=== PATIENT | female | born 1980 | race Caucasian/White ===

== ENCOUNTER → 2018-07-05 | Outpatient (CLI) | payer OTHER ==
--- NOTE | 2018-07-05 14:55 | Diagnostic Imaging Report ---
EXAMINATION: MRI of the brain without contrast. HISTORY: Persistent severe headache for the last 24 hours COMPARISON: None. TECHNIQUE: Sagittal T2; axial DWI, T2, FLAIR, T1-IR, T2 gradient echo; coronal FLAIR. IMAGE QUALITY: Adequate. FINDINGS: Parenchyma: 1. A few scattered supratentorial white matter T2 and FLAIR hyperintense foci (less than 5) which may be migraine related or secondary to minimal chronic microvascular ischemic. 2. No mass, hemorrhage, acute or chronic infarcts. Skull: Unremarkable. Vessels: Expected flow voids present in the major arteries and dural sinuses. Extra-axial spaces: No abnormal signal intensity or mass effect. Brain volume: Within normal limits for age. Ventricles: No hydrocephalus or displacement. Foramen magnum: Unremarkable. Sella: Unremarkable. Paranasal / mastoid sinuses: No significant inflammatory disease. IMPRESSION: No acute intracranial abnormalities particularly no evidence of hemorrhage. The findings were discussed with the attending physician Dr. Malloy at the time of this dictation. Signed by: Dr. Kalie Valiente M.D. on 07/05/2018 2:51 PM
== END ==
LOC: MRI 13:38
PROVIDERS: ATTEND Family Medicine
DX: G43.909 Migraine, unspecified, not intractable, without status migrainosus (principal); G44.209 Tension-type headache, unspecified, not intractable
CPT/HCPCS: 70551

== ENCOUNTER → 2019-11-15 | Outpatient (CLI) | payer OTHER ==
--- NOTE | 2019-11-15 13:46 | Diagnostic Imaging Report ---
Thyroid ultrasound. History: Thyroid nodule. Comparison: None available. Discussion: Transverse and longitudinal images of the thyroid were obtained demonstrating normal echogenicity of the thyroid. The right lobe is mildly enlarged measuring 4.5 x 1.8 x 2.3 cm and the left is normal in size measuring 4.3 x 1.2 x 1.8 cm. The isthmus is within normal limits. On the right, 2 cystic lesions are present, measuring 1.7 x 1.1 x 1.5 cm and 2.1 x 1.0 x 1.9 cm. A single solid oval hyperechoic nodule is present in the interpolar region measuring 1.2 x 0.7 x 0.7 cm. No nodules are present on the left. IMPRESSION: 2 benign right thyroid cysts and a single 1.2 cm TR3 right thyroid nodule. No follow-up recommended since the nodule is less than 1.5 cm. Signed by: Faustino Hubbard on 11/15/2019 1:44 PM
== END ==
LOC: US 11:19
PROVIDERS: ATTEND Family Medicine
DX: E04.1 Nontoxic single thyroid nodule (principal)
CPT/HCPCS: 76536